=== PATIENT | male | born 1985 | race Caucasian/White ===

== ENCOUNTER → 2017-04-23 | Outpatient (REF) | payer OTHER | LOC: M LAB REF 08:00 | PROVIDERS: ATTEND Physician Assistant | DX: R21 Rash and other nonspecific skin eruption (principal) ==

== ENCOUNTER 2019-02-18 07:30 | Emergency (ER) | payer OTHER ==
[~2019-02-18] VITALS: Ht 177.8 cm; Wt 84.1 kg
[2019-02-18] MEDS ORDERED: FAMOTIDINE 20 MG TAB PO ONE (08:00)
[2019-02-18] MEDS ORDERED: PANTOPRAZOLE 40MG TAB (PROTONIX) PO ONE (08:00)
[2019-02-18] MEDS ORDERED: GI COCKTAIL 50ML BTL(HYOSCYAMINE/MAALOX/LIDOCAINE VISCOUS)(1:3:1) PO ONE (08:00)
[2019-02-18] MEDS ORDERED: KETOROLAC 30 MG/ML VIAL (J1885) IV ONE (08:30)
[2019-02-18 08:50] LABS: BASO % 0.4 % (0.0-1.0); EOS # 0.1 10^3/uL (0.0-0.50); LYMPH # 2.3 10^3/uL (1.5-4.5); LYMPH % 28.1 % (24.0-44.0); MEAN CORPUSCULAR HEMOGLOBIN 29.8 pg (27.0-33.0); MEAN CORPUSCULAR HGB CONC 34.9 g/dl (32.0-36.5); MEAN CORPUSCULAR VOLUME 85.5 fl (80.0-96.0); MONO # 0.7 10^3/uL (0.0-0.8); MONO % 8.5 % (0.0-5.0); NEUTROPHILS % 61.8 % (36.0-66.0); PLATELET COUNT, AUTOMATED 264 10^3/uL (150-450); RED BLOOD COUNT 5.03 10^6/uL (4.30-6.10); WHITE BLOOD COUNT 8.2 10^3/uL (4.0-10.0)
[2019-02-18 09:00] LABS: ALBUMIN 3.6 GM/DL (3.2-5.2); ALT/SGPT 39 U/L (12-78); AMYLASE 38 U/L (25-115); BILIRUBIN,DIRECT 0.1 MG/DL (0.0-0.2); BILIRUBIN,TOTAL 0.5 MG/DL (0.2-1.0); BLOOD UREA NITROGEN 12 MG/DL (7-18); CALCIUM LEVEL 8.9 MG/DL (8.5-10.1); CARBON DIOXIDE LEVEL 28 MEQ/L (21-32); CHLORIDE LEVEL 106 MEQ/L (98-107); CREATININE FOR GFR 0.76 MG/DL (0.70-1.30); GLOMERULAR FILTRATION RATE > 60.0 (>60); GLUCOSE, FASTING 99 MG/DL (70-100); LIPASE 59 U/L (73-393); POTASSIUM SERUM 4.5 MEQ/L (3.5-5.1); SODIUM LEVEL 140 MEQ/L (136-145); TOTAL PROTEIN 7.2 GM/DL (6.4-8.2)
[2019-02-18] MEDS ORDERED: ZOFR4TAB16 PO (09:13)
[2019-02-18] MEDS ORDERED: PROT1TAB2 PO (09:13)
[2019-02-18 09:30] VITALS: BP 145/95
[2019-02-19] MEDS ORDERED: PROT1TAB2 PO (23:59)
[2019-02-19] MEDS ORDERED: ZOFR4TAB16 PO (23:59)
== END 2019-02-18 09:32 | disposition home or self-care (01) ==
LOC: M ED 07:30
DX: K29.00 Acute gastritis without bleeding (principal); K21.0 Gastro-esophageal reflux disease with esophagitis; Z79.899 Other long term (current) drug therapy
CPT/HCPCS: 80048; 80076; 82150; 83690; 85025; 96374; 99284; J1885

== ENCOUNTER 2019-02-19 20:22 | Day surgery (SDC) | payer OTHER ==
[~2019-02-19] VITALS: Ht 177.8 cm; Wt 84.1 kg
[~2019-02-19 20:22] MED LIST: PROT1TAB2 PO; ZOFR4TAB16 PO
[2019-02-19 20:57] LABS: BASO % 0.2 % (0.0-1.0); EOS # 0.1 10^3/uL (0.0-0.50); EOS % 0.7 % (0.0-3.0); HEMOGLOBIN 15.4 g/dl (13.5-17.5); LYMPH # 3.1 10^3/uL (1.5-4.5); MEAN CORPUSCULAR HEMOGLOBIN 30.2 pg (27.0-33.0); MEAN CORPUSCULAR VOLUME 86.3 fl (80.0-96.0); MONO # 1.6 10^3/uL (0.0-0.8); MONO % 10.5 % (0.0-5.0); NEUTROPHILS # 10.5 10^3/uL (1.8-7.7); NEUTROPHILS % 68.1 % (36.0-66.0); PLATELET COUNT, AUTOMATED 296 10^3/uL (150-450); WHITE BLOOD COUNT 15.4 10^3/uL (4.0-10.0)
[2019-02-19 21:25] LABS: ALBUMIN 3.6 GM/DL (3.2-5.2); ALT/SGPT 35 U/L (12-78); BILIRUBIN,DIRECT 0.1 MG/DL (0.0-0.2); BILIRUBIN,TOTAL 0.7 MG/DL (0.2-1.0); BLOOD UREA NITROGEN 11 MG/DL (7-18); CALCIUM LEVEL 9.1 MG/DL (8.5-10.1); CARBON DIOXIDE LEVEL 30 MEQ/L (21-32); CHLORIDE LEVEL 102 MEQ/L (98-107); CREATININE FOR GFR 0.93 MG/DL (0.70-1.30); GLOMERULAR FILTRATION RATE > 60.0 (>60); GLUCOSE, FASTING 118 MG/DL (70-100); LIPASE 115 U/L (73-393); POTASSIUM SERUM 4.1 MEQ/L (3.5-5.1); SODIUM LEVEL 138 MEQ/L (136-145); TOTAL PROTEIN 7.3 GM/DL (6.4-8.2)
[2019-02-19] MEDS ORDERED: MORPHINE 2 MG/ML 1ML SYRINGE (J2270) IV ONE (21:30)
[2019-02-19] MEDS ORDERED: ONDANSETRON 4MG/2ML VIAL (J2405) IV ONE (21:30)
[2019-02-19] MEDS ORDERED: ISOVUE-370 76% 100ML VIAL (Q9967) As Ordered ONE (21:52)
[2019-02-19 22:07] LABS: AMORPHOUS SEDIMENT SMALL (NEGATIVE); APPEARANCE, URINE CLEAR (CLEAR); BACTERIA, URINE AUTO NEGATIVE (NEGATIVE); BILIRUBIN, URINE AUTO NEGATIVE (NEGATIVE); BLOOD, URINE BLOOD NEGATIVE (NEGATIVE); COLOR, URINE YELLOW (YELLOW); GLUCOSE, URINE (UA) AUTO NEGATIVE (NEGATIVE); KETONE, URINE AUTO NEGATIVE (NEGATIVE); LEUKOCYTE ESTERASE, URINE AUTO NEGATIVE (NEGATIVE); MUCUS, URINE SMALL (NEGATIVE); NITRITE, URINE AUTO NEGATIVE (NEGATIVE); PROTEIN, URINE AUTO NEGATIVE (NEGATIVE); RBC, URINE AUTO 2 /HPF (0-3); SPECIFIC GRAVITY URINE AUTO 1.016 (1.002-1.035); SQUAMOUS EPITHELIAL CELL UR AU 0 /HPF (0-6); UROBILINOGEN, URINE AUTO 0.2 mg/dL (0.0-2.0); WBC, URINE AUTO 1 /HPF (0-3)
--- NOTE | 2019-02-19 23:11 | REPVR ---
EXAM: CT Abdomen and Pelvis With Contrast EXAM DATE/TIME: 02/19/2019 10:05 PM CLINICAL HISTORY: 33 years old, male; Abdominal pain; Localized; Right lower quadrant (rlq); Additional info: Rlq abd pain, eval for appy TECHNIQUE: Imaging protocol: Axial computed tomography images of the abdomen and pelvis with intravenous contrast. Coronal and sagittal reformatted images were created and reviewed. Radiation optimization: All CT scans at this facility use at least one of these dose optimization techniques: automated exposure control; mA and/or kV adjustment per patient size (includes targeted exams where dose is matched to clinical indication); or iterative reconstruction. Contrast material: ISOVUE 370; Contrast volume: 100 ml; Contrast route: IV; COMPARISON: No relevant prior studies available. FINDINGS: ABDOMEN: Liver: Subtle 3.3 x 2.3 cm hypervascular lesion in the hepatic dome on the right, possibly a flash filling hemangioma. 6 mm low density lesion in the left hepatic lobe, too small to characterize. Gallbladder and bile ducts: No radiodense gallstones. No biliary ductal dilatation. Pancreas: Unremarkable. Spleen: Unremarkable. Adrenals: Unremarkable. Kidneys and ureters: No mass. No radiodense calculi. No hydronephrosis. Stomach and bowel: See Appendix Finding. Appendix: Dilated, thickwalled, hyperemic appendix with moderate periappendiceal inflammatory change and fluid. Mucosal discontinuity, consistent with early perforation. PELVIS: Bladder: Unremarkable. Reproductive: Unremarkable. ABDOMEN and PELVIS: Intraperitoneal space: Trace free pelvic fluid, likely reactive. No organized fluid collection. No free air. Bones/joints: No acute osseous abnormality. Soft tissues: Unremarkable. Vasculature: Unremarkable. No aneurysm. Lymph nodes: Small mesenteric lymph nodes, likely reactive. No pathologically enlarged lymph nodes. IMPRESSION: 1. Perforated appendicitis, as described above. No abscess, obstruction or free air. 2. Additional findings, as above. Electronically signed by: Lenard Fu On 02/19/2019 23:11:06 PM
[2019-02-19] MEDS ORDERED: PIPERACILLIN/TAZOBACTAM SOD 3.375 GM in D5W MINI-BAG PLUS 50 ML IV ONE (23:30)
[2019-02-19] MEDS ORDERED: NS 1,000 ML IV SCH (23:30)
[2019-02-19] MEDS ORDERED: PROT1TAB2 PO (23:59)
[2019-02-19] MEDS ORDERED: ZOFR4TAB16 PO (23:59)
[2019-02-20] VITALS (10 sets, daily range): BP systolic 97–125; BP diastolic 56–76
[2019-02-20] MEDS ORDERED: TUMS750C5 PO (00:05)
[2019-02-20] MEDS ORDERED: ROCURONIUM BROMIDE 50 MG/5 ML VIAL As Ordered ONE (00:42)
[2019-02-20] MEDS ORDERED: fentaNYL 250 MCG/5 ML INJECTION (J3010) As Ordered ONE (00:42)
[2019-02-20] MEDS ORDERED: LIDOCAINE 2% INJ 100 MG/5 ML SDV (FOR ANES.) As Ordered ONE (00:42)
[2019-02-20] MEDS ORDERED: PROPOFOL 200 MG/20 ML VIAL As Ordered ONE (00:42)
[2019-02-20] MEDS ORDERED: MIDAZOLAM INJ 2 MG/2 ML VIAL (J2250) As Ordered ONE (00:43)
[2019-02-20] MEDS ORDERED: BUPIVACAINE HCL 0.25% 30 ML VIAL As Ordered ONE (01:14)
[2019-02-20] MEDS ORDERED: LIDOCAINE 1% SDV INJ 30 ML VIAL As Ordered ONE (01:14)
--- NOTE | 2019-02-20 01:20 | HPEPDOC ---
General Surgery H&P Date of Admission February 19, 2019 Attending Physician: JAROD HARMON MD History and Physical CHIEF COMPLAINT: abdominal pain HISTORY OF PRESENT ILLNESS: Patient returns to the emergency room tonight with reports of worsening abdominal pain. He was seen in the emergency room yesterday with complaints of epigastric discomfort that started about . He reports the discomfort as vague, achy sometimes sharp. This is accompanied by constipation. He was diagnosed possibility of gastritis was discharged home on Zofran and pantoprazole. He took the medications when he got home and his pain did not improve. Likewise his pain became sharp and localized to the right lower quadrant area starting this morning. Patient also reports being febrile at home. ALLERGIES: Please see below. HOME MEDICATIONS: Please see below. PAST MEDICAL HISTORY: 1 denies any chronic medical problems PAST SURGICAL HISTORY: 1. hernia repair, bilateral inguinal hernia 2. left elbow surgery. PERSONAL/SOCIAL HISTORY: [Denies smoking, alcohol use, or recreational drug use]. REVIEW OF SYSTEMS: GENERAL: Patient reports fever early in the week which she believes is from a viral prodrome that he got from his daughter. HEENT: [Denies blurred vision and double vision. Denies ear symptoms. Denies hoarseness]. NECK: [Denies any neck pain]. CARDIOVASCULAR: [Denies chest pain and palpitations]. MUSCULOSKELETAL: Reports left shoulder pain from an injury he got in January. SKIN: [Denies rash]. NEUROLOGIC: [Denies headache, stroke and transient ischemic attack]. PSYCHIATRIC: [Denies anxiety and depression]. ENDOCRINE: [Denies thyroid disease]. HEMATOLOGY/ONCOLOGY: [Denies any bleeding or clotting disorder]. HEART: [Denies any chest pains, palpitations, paroxysmal dyspnea, orthopnea]. PULMONARY: [Denies chronic cough, dyspnea and wheezing]. GASTROINTESTINAL: [Denies rectal bleeding, family history of colon cancer, constipation, diarrhea, dysphagia, heartburn and jaundice]. GENITOURINARY: [Denies dysuria, frequency, hematuria and nocturia]. ENDOCRINE: [Denies polydipsia, polyphagia, polyuria, heat or cold intolerance]. INFECTIOUS: No antibiotics, suspects he had some viral prodrome early in the week with fever. NUTRITION: Reports fair appetite. PHYSICAL EXAMINATION: VITAL SIGNS: Please see below. GENERAL APPEARANCE: Mildly uncomfortable laying flat on bed. [Awake, alert, oriented]. HEENT: [Normocephalic, atraumatic. [place] palpebral conjunctivae. Anicteric sclerae. Lips moist]. CHEST: [No chest wall abnormalities. Normal respiratory motion/effort]. NECK: [Supple. No thyromegaly. No lymphadenopathies]. LUNGS: [Lung sounds are clear to auscultation bilaterally. No wheezing appreciated]. HEART: [No chest wall abnormalities. Heart rate and rhythm are regular with no murmurs]. ABDOMEN: Abdomen is flat, soft. No umbilical or groin herniations. Bilateral groin hernia incisions noted. He is exquisitely tender over the right lower quadrant area with guarding as well as rebound which decreases in amount as it crosses past midline. He is nontender on the left side. SKIN: [Warm, moist]. EXTREMITIES: [Extremities have no deformities. No edema identified]. NEUROLOGICAL: Awake, alert, oriented. ANCILLARIES: . LABORATORY DATA: Please see below. MICROBIOLOGY: Please see below. IMAGING: CT scan abdomen and pelvis Appendix: Dilated, thickwalled, hyperemic appendix with moderate periappendiceal inflammatory change and fluid. Mucosal discontinuity, consistent with early perforation. IMPRESSION AND PLAN: Acute Appendicitis, possibly perforated Patient has been having symptoms since with a good possibility that the appendix has perforated both on history, examination as well as on the CT. I think he would still benefit from a adequate source control with an appendectomy though he may need to stay in the hospital for a few days until he is afebrile and any signs of systemic inflammatory response is resolved with continued antibiotics. I discussed with the patient the details of the proposed procedure, the benefits of performing the procedure, the most common risks on doing the procedure. This may include risks of bleeding, subsequent infection and abscess formation, wound infection, injury to nearby bowels, vascular structures and hernia formation. I have given him a chance to ask questions, voice out concerns. Patient has agreed to proceed Patient's been given Zosyn 3.3 cm grams IV emergency room. I will continue this preoperatively specially if he is found to have perforation Vital Signs Vital Signs Date Time Temp Pulse Resp B/P (MAP) Pulse Ox O2 Delivery O2 Flow Rate FiO2 02/19/19 21:04 02/19/19 20:22 98.0 116 16 96 Room Air Laboratory Data Labs 24H Laboratory Tests 2 02/19/19 20:39: Immature Granulocyte % (Auto) 0.5, White Blood Count 15.4H, Red Blood Count 5.10, Hemoglobin 15.4, Hematocrit 44.0, Mean Corpuscular Volume 86.3, Mean Corpuscular Hemoglobin 30.2, Mean Corpuscular Hemoglobin Concent 35.0, Red Cell Distribution Width 11.3L, Platelet Count 296, Neutrophils (%) (Auto) 68.1H, Lymphocytes (%) (Auto) 20.0L, Monocytes (%) (Auto) 10.5H, Eosinophils (%) (Auto) 0.7, Basophils (%) (Auto) 0.2, Neutrophils # (Auto) 10.5H, Lymphocytes # (Auto) 3.1, Monocytes # (Auto) 1.6H, Eosinophils # (Auto) 0.1, Basophils # (Auto) 0.0, Nucleated Red Blood Cells % (auto) 0.0, Anion Gap 6L, Glomerular Filtration Rate > 60.0, Calcium Level 9.1, Aspartate Amino Transf (AST/SGOT) 19, Alanine Aminotransferase (ALT/SGPT) 35, Alkaline Phosphatase 55, Total Bilirubin 0.7, Direct Bilirubin 0.1, Total Protein 7.3, Albumin 3.6, Albumin/Globulin Ratio 0.97L, Lipase 115 02/19/19 21:48: Urine Appearance CLEAR, Urine Color YELLOW, Urine pH 7.0, Urine Specific [place] 1.016, Urine Protein NEGATIVE, Urine Glucose (UA) NEGATIVE, Urine Ketones NEGATIVE, Urine Urobilinogen 0.2, Urine Bilirubin NEGATIVE, Urine Leukocyte Esterase NEGATIVE, Urine Blood NEGATIVE, Urine Nitrite NEGATIVE, Urine WBC (Auto) 1, Urine RBC (Auto) 2, Urine Hyaline Casts (Auto) 0, Urine Bacteria (Auto) NEGATIVE, Urine Squamous Epithelial Cells 0, Urine Amorphous Sediment SMALLH, Urine Mucus (Auto) SMALL, Urine Sperm (Auto) CBC/BMP Laboratory Tests 02/19/19 20:39 Red Blood Count 5.10, Mean Corpuscular Volume 86.3, Mean Corpuscular Hemoglobin 30.2, Mean Corpuscular Hemoglobin Concent 35.0, Red Cell Distribution Width 11.3 L, Neutrophils (%) (Auto) 68.1 H, Lymphocytes (%) (Auto) 20.0 L, Monocytes (%) (Auto) 10.5 H, Eosinophils (%) (Auto) 0.7, Basophils (%) (Auto) 0.2, Neutrophils # (Auto) 10.5 H, Lymphocytes # (Auto) 3.1, Monocytes # (Auto) 1.6 H, Eosinophils # (Auto) 0.1, Basophils # (Auto) 0.0 Home Medications Scheduled Pantoprazole Sodium (Protonix) 40 Mg Tablet.dr, 40 MG PO DAILY, (Reported) Scheduled PRN Calcium Carbonate (Tums) 300 Mg Tab.chew, 750 MG PO Q4H PRN for HEARTBURN/INDIGESTION, (Reported) Ondansetron HCl (Zofran) 4 Mg Tablet, 4 MG PO Q6H PRN for NAUSEA, (Reported) Allergies Coded Allergies: No Known Drug Allergies (Verified Allergy, Unknown, 02/18/19) A-FIB/CHADSVASC A-FIB History Current/History of A-Fib/PAF?: No Current Oral Anticoagulant The: No JAROD HARMON MD February 19, 2019 23:59
[2019-02-20] MEDS ORDERED: dexameTHASONE 4 MG/ML 1ML VIAL (J1100) As Ordered ONE (01:48)
[2019-02-20] MEDS ORDERED: ONDANSETRON 4MG/2ML VIAL (J2405) As Ordered ONE (02:04)
[2019-02-20] MEDS ORDERED: KETOROLAC 60 MG/2 ML VIAL (J1885) As Ordered ONE (02:04)
[2019-02-20] MEDS ORDERED: SUGAMMADEX SODIUM 500 MG/5 ML VIAL (BRIDION) As Ordered ONE (02:05)
[2019-02-20] MEDS ORDERED: LR 1,000 ML IV SCH ×2 (02:21→02:45)
--- NOTE | 2019-02-20 02:28 | ROOPDOC ---
[facility] Report Of Operation Report of Operation DATE OF PROCEDURE: 02/20/19 PREPROCEDURE DIAGNOSES: Acute appendicitis POSTPROCEDURE DIAGNOSES: Acute perforated Appendicitis. PROCEDURE: Laparoscopic Appendectomy. SURGEON: James Mcghee MD VAMP WETTER: ANESTHESIA: General anesthesia. ESTIMATED BLOOD LOSS: Approximately 10 mL. COMPLICATIONS: None. REMARKS: Healthy 33-year-old male with at least 4 days history of ongoing abdominal discomfort, right lower quadrant tenderness and guarding in CT evidence for appendicitis possibility of perforation. PROCEDURE NOTE: Inflamed and thickened appendix throughout its course. The tip is perforated with a very tiny focus of abscess in between the tip and the right lateral abdominal sidewall otherwise no free fluid collections.. DESCRIPTION OF PROCEDURE: .Patient has been given a dose of Zosyn perioperatively.Patient was brought to the operating room, placed supine on the table. Sequential compression device placed for DVT prophylaxis. General endotracheal anesthesia started. The abdomen prepped and draped in usual sterile fashion. After a surgical timeout, we began our surgery Entry into the abdomen done through an incision above the umbilicus. Veress needle inserted on a controlled fashion. Intra-abdominal placement confirmed with saline drop technique. CO2 insufflation started to a pressure of 15 mmHg. Using the same incision a 12 mm port was placed under direct vision of laparoscope. Insertion site was inspected for injury and none was found. He was placed on a Trendelenburg position the right side tilted to about 30 to allow for better visualization of the appendix. 2 working ports were placed at the suprapubic area and left lower quadrant area under direct vision. An 8 mm port was exchanged for the 5 mm umbilical port. Operative findings: The appendix is noted inflamed and thickened throughout its course. Tip of it is adhered to the right lateral abdominal sidewall his small focus of surrounding purulent material around the site of perforation. No free perforation or well localized abscess collection. The base of the appendix is mildly inflamed but otherwise healthy. There is a cyst on the tip of the right lobe liver. The appendix was located. The Surrounding bowels retracted away from the appendix. This was grasped to pull the base of the appendix into view. The tip of the appendix was dissected free from its attachment to the lateral abdominal sidewall. There is a small amount of purulent material surrounding the tip which is focally perforated. The mesoappendix was divided using Harmonic scalpel down to the base. Two PDS Endoloops were placed to ligate the appendix at its base then divided with a Harmonic Scalpel the stump cauterized. Stump appears healthy. Appendix was then delivered into an Endo Catch bag. After re- insufflation the surgical site was inspected for hemostasis, the right gutter wa s irrigated and suctioned off until clear return. Surrounding areas of the abdomen and inspected for fluid collections or signs of injury. A 10 flat TONYA drain was left in place close to the abdomen initial stump for monitoring and for drainage of fluid irrigation. The abdomen was deflated. All ports removed. The umbilical fascial defect repaired with 0 Vicryl in a mattress fashion. All skin incisions closed with 4-0 Monocryl in a subcuticular fashion. Steri-Strips and gauze dressing used for wound coverage. Patient was promptly awake and extubated and brought to recovery room stable. All counts of sponges and instruments verified to be correct. JAMES MCGHEE MD February 20, 2019 01:44
[2019-02-20] MEDS ORDERED: MORPHINE 4 MG/ML 1ML VIAL/SYRINGE (J2270) IV PRN (02:30)
[2019-02-20] MEDS ORDERED: NORCO, ANEXSIA 5/325MG TABLET (HYDROcodone/ACETAMINOPHEN) PO PRN ×2 (02:30→02:45)
[2019-02-20] MEDS ORDERED: ONDANSETRON 4MG/2ML VIAL (J2405) IV PRN (02:30)
[2019-02-20] MEDS ORDERED: fentaNYL 100 MCG/2 ML INJECTION (J3010) IV PRN (02:45)
[2019-02-20] MEDS ORDERED: PROMETHAZINE INJ 25 MG/ML VIAL (J2550) IV PRN (02:45)
[2019-02-20] MEDS: NORCO, ANEXSIA 5/325MG TABLET (HYDROcodone/ACETAMINOPHEN) PO PRN ×3 (04:26→18:00)
[2019-02-20 06:51] LABS: BASO % 0.2 % (0.0-1.0); HEMATOCRIT 41.1 % (42.0-52.0); HEMOGLOBIN 14.3 g/dl (13.5-17.5); LYMPH # 1.2 10^3/uL (1.5-4.5); LYMPH % 6.6 % (24.0-44.0); MEAN CORPUSCULAR HEMOGLOBIN 30.2 pg (27.0-33.0); MEAN CORPUSCULAR HGB CONC 34.8 g/dl (32.0-36.5); MEAN CORPUSCULAR VOLUME 86.7 fl (80.0-96.0); MONO # 1.8 10^3/uL (0.0-0.8); MONO % 9.9 % (0.0-5.0); NEUTROPHILS # 15.2 10^3/uL (1.8-7.7); NEUTROPHILS % 82.8 % (36.0-66.0); PLATELET COUNT, AUTOMATED 272 10^3/uL (150-450); RED BLOOD COUNT 4.74 10^6/uL (4.30-6.10); WHITE BLOOD COUNT 18.3 10^3/uL (4.0-10.0)
[2019-02-20 07:12] LABS: BLOOD UREA NITROGEN 13 MG/DL (7-18); CALCIUM LEVEL 8.9 MG/DL (8.5-10.1); CARBON DIOXIDE LEVEL 27 MEQ/L (21-32); CHLORIDE LEVEL 104 MEQ/L (98-107); GLOMERULAR FILTRATION RATE > 60.0 (>60); GLUCOSE, FASTING 128 MG/DL (70-100); POTASSIUM SERUM 3.9 MEQ/L (3.5-5.1); SODIUM LEVEL 138 MEQ/L (136-145)
[2019-02-20] MEDS: SENOKOT S TAB PO SCH ×2 (08:39→20:29)
[2019-02-20] MEDS: PIPERACILLIN/TAZOBACTAM SOD 3.375 GM in D5W MINI-BAG PLUS 50 ML IV SCH ×2 (08:39→16:33)
[2019-02-20] MEDS: KETOROLAC 30 MG/ML VIAL (J1885) IV PRN ×2 (14:13→20:33)
[2019-02-21] VITALS: BP 128/80
[2019-02-21] MEDS: PIPERACILLIN/TAZOBACTAM SOD 3.375 GM in D5W MINI-BAG PLUS 50 ML IV SCH ×2 (00:15→08:28)
[2019-02-21] MEDS: NORCO, ANEXSIA 5/325MG TABLET (HYDROcodone/ACETAMINOPHEN) PO PRN ×2 (00:16→07:17)
[2019-02-21 08:15] VITALS: BP 141/80
[2019-02-21 08:20] LABS: BASO % 0.2 % (0.0-1.0); EOS # 0.2 10^3/uL (0.0-0.50); EOS % 1.4 % (0.0-3.0); HEMATOCRIT 40.9 % (42.0-52.0); HEMOGLOBIN 13.9 g/dl (13.5-17.5); LYMPH # 2.7 10^3/uL (1.5-4.5); LYMPH % 25.3 % (24.0-44.0); MEAN CORPUSCULAR HEMOGLOBIN 29.3 pg (27.0-33.0); MEAN CORPUSCULAR VOLUME 86.3 fl (80.0-96.0); MONO # 1.1 10^3/uL (0.0-0.8); MONO % 10.5 % (0.0-5.0); NEUTROPHILS # 6.6 10^3/uL (1.8-7.7); NEUTROPHILS % 61.9 % (36.0-66.0); PLATELET COUNT, AUTOMATED 260 10^3/uL (150-450); RED BLOOD COUNT 4.74 10^6/uL (4.30-6.10); WHITE BLOOD COUNT 10.6 10^3/uL (4.0-10.0)
[2019-02-21] MEDS: SENOKOT S TAB PO SCH (08:28)
[2019-02-21 08:43] LABS: BLOOD UREA NITROGEN 15 MG/DL (7-18); CALCIUM LEVEL 8.4 MG/DL (8.5-10.1); CARBON DIOXIDE LEVEL 26 MEQ/L (21-32); CHLORIDE LEVEL 106 MEQ/L (98-107); CREATININE FOR GFR 0.64 MG/DL (0.70-1.30); GLOMERULAR FILTRATION RATE > 60.0 (>60); GLUCOSE, FASTING 87 MG/DL (70-100); POTASSIUM SERUM 4.2 MEQ/L (3.5-5.1); SODIUM LEVEL 139 MEQ/L (136-145)
[2019-02-21 12:00] VITALS: BP 126/61
[2019-02-21] MEDS: KETOROLAC 30 MG/ML VIAL (J1885) IV PRN (12:02)
[2019-02-21] MEDS ORDERED: FLAG500T PO (12:15)
[2019-02-21] MEDS ORDERED: AMOX875T2 PO (12:15)
[2019-02-21] MEDS ORDERED: HYDR-4571 PO (12:15)
--- NOTE | 2019-02-21 14:01 | IPNPDOC ---
Subjective General Date/Time Seen The patient was seen on 02/21/19 at 13:56. Subject Chief Complaint/History The patient is a 33-year-old male admitted with a reason for visit of Appendicitis. Patient reports feeling mildly better this morning. He denies any nausea. He is tolerating regular food and has a good appetite. No more febrile episodes since yesterday. Current Medications Current Medications Current Medications Acetaminophen/ Hydrocodone Bitart ([place], Anexsia 5/325) 1 tab ASDIRECTED PRN PO MILD/MODERATE PAIN (PS 1-7); Start 02/20/19 at 02:45; Stop 02/20/19 at 03:44; Status DC Acetaminophen/ Hydrocodone Bitart ([place], Anexsia 5/325) 1 tab Q4HP PRN PO MODERATE PAIN (PS 5-7); Start 02/20/19 at 02:30 Acetaminophen/ Hydrocodone Bitart ([place], Anexsia 5/325) 2 tab Q6HP PRN PO SEVERE PAIN (PS 8-10) Last administered on 02/21/19at 07:17; Start 02/20/19 at 02:30 Fentanyl Citrate (Sublimaze) 25 mcg Q5MP PRN IV MODERATE PAIN (PS 4-7); Start 02/20/19 at 02:45; Stop 02/20/19 at 03:44; Status DC Home Med (Med Rec Complete!) ASDIRECTED XX ; Start 02/20/19 at 00:00; Stop 02/20/19 at 00:05; Status DC Ketorolac Tromethamine (ToRADol) 30 mg Q6HP PRN IV MILD/MODERATE PAIN (PS 1-7) Last administered on 02/21/19at 12:02; Start 02/20/19 at 02:30; Stop 02/25/19 at 02:29 Lactated Ringer's 1,000 ml @ 100 mls/hr Q10H IV ; Start 02/20/19 at 02:21; Sta tus Cancel Lactated Ringer's 1,000 ml @ 100 mls/hr Q10H IV ; Start 02/20/19 at 02:45; Stop 02/20/19 at 03:44; Status DC Morphine Sulfate (Morphine Sulfate Inj) 4 mg Q2HP PRN IV SEVERE PAIN (PS 8-10); Start 02/20/19 at 02:30 Ondansetron HCl (ZOFRAN INJection) 4 mg Q6HP PRN IV NAUSEA OR VOMITING; Start 02/20/19 at 02:30 Piperacillin Sod/ Tazobactam Sod 3.375 gm/Dextrose 50 ml @ 50 mls/hr Q8H IV Last administered on 02/21/19at 08:28; Start 02/20/19 at 08:00 Promethazine HCl (PHENERGAN INJection) 12.5 mg Q5MP PRN IV NAUSEA OR VOMITING; Start 02/20/19 at 02:45; Stop 02/20/19 at 03:44; Status DC Senna/Docusate Sodium (Senokot S) 1 tab BID PO Last administered on 02/21/19at 08:28; Start 02/20/19 at 09:00 Sodium Chloride 1,000 ml @ 125 mls/hr Q8H IV Last administered on 02/19/19at 23:45; Start 02/19/19 at 23:30; Stop 02/20/19 at 02:27; Status DC Allergies Coded Allergies: No Known Drug Allergies (Verified Allergy, Unknown, 02/18/19) Objective Physical Examination Examination GENERAL APPEARANCE: Patient looks comfortable. SKIN: Warm and moist. HEENT: Normocephalic, atraumatic. [place] palpebral conjunctiva, anicteric sclerae. Lips and mucosa appear moist. NECK: Supple, no thyromegaly. No obvious jugular venous distention. LUNGS: Clear to auscultation bilaterally. No wheezing appreciated. HEART: No chest wall abnormalities. Regular rate and rhythm with no murmurs appreciated. ABDOMEN: Abdomen is relatively flat, soft, nondistended. Still mildly tender over the right lower quadrant area nontender and other parts of the abdomen, according. EXTREMITIES: Extremities have no deformities. No edema identified. Vital Signs Vital Signs Date Time Temp Pulse Resp B/P (MAP) Pulse Ox O2 Delivery O2 Flow Rate FiO2 02/21/19 12:00 99.1 77 17 126/61 (82) 97 02/19/19 20:22 Room Air I&Os I&O- Last 24 Hours up to 6 AM 02/21/19 06:00 Intake Total 2440 ml Output Total 1600 ml Balance 840 ml Laboratory Data Labs 24H Laboratory Tests 2 02/21/19 07:49: Immature Granulocyte % (Auto) 0.7, White Blood Count 10.6H, Red Blood Count 4.74, Hemoglobin 13.9, Hematocrit 40.9L, Mean Corpuscular Volume 86.3, Mean Corpuscular Hemoglobin 29.3, Mean Corpuscular Hemoglobin Concent 34.0, Red Cell Distribution Width 11.4L, Platelet Count 260, Neutrophils (%) (Auto) 61.9, Lymphocytes (%) (Auto) 25.3, Monocytes (%) (Auto) 10.5H, Eosinophils (%) (Auto) 1.4, Basophils (%) (Auto) 0.2, Neutrophils # (Auto) 6.6, Lymphocytes # (Auto) 2.7, Monocytes # (Auto) 1.1H, Eosinophils # (Auto) 0.2, Basophils # (Auto) 0.0, Nucleated Red Blood Cells % (auto) 0.0, Anion Gap 7L, Glomerular Filtration Rate > 60.0, Blood Urea Nitrogen 15, Creatinine 0.64L, Sodium Level 139, Potassium Level 4.2, Chloride Level 106, Carbon Dioxide Level 26, Calcium Level 8.4L, C- Reactive Protein, Quantitative 13.20H CBC/BMP Laboratory Tests 02/21/19 07:49 Red Blood Count 4.74, Mean Corpuscular Volume 86.3, Mean Corpuscular Hemoglobin 29.3, Mean Corpuscular Hemoglobin Concent 34.0, Red Cell Distribution Width 11.4 L, Neutrophils (%) (Auto) 61.9, Lymphocytes (%) (Auto) 25.3, Monocytes (%) (Auto) 10.5 H, Eosinophils (%) (Auto) 1.4, Basophils (%) (Auto) 0.2, Neutrophils # (Auto) 6.6, Lymphocytes # (Auto) 2.7, Monocytes # (Auto) 1.1 H, Eosinophils # (Auto) 0.2, Basophils # (Auto) 0.0, Calcium Level 8.4 L JAROD HARMON MD February 21, 2019 14:01
== END 2019-02-21 13:50 | disposition home or self-care (01) ==
LOC: M ED 20:22 → M SDC 20:24 → M PED 02-20 03:08 → M SDC 02-20 03:08 → M PED 02-21 13:50 → M SDC 02-21 13:50
PROVIDERS: ATTEND Surgery
DX: K35.80 Unspecified acute appendicitis (principal)
CPT/HCPCS: 36415; 44970; 74177; 80048; 80076; 81001; 83690; 85025; 86140; 88304; 96365; 96366; 96375; 99284; J1100; J1885; J2250; J2405; J2543; J3010; Q9967

== ENCOUNTER → 2019-03-31 | Outpatient (CLI) | payer OTHER ==
[~2019-03-31] MED LIST changes: +AMOX875T2 PO; +FLAG500T PO; +HYDR-4571 PO; +TUMS750C5 PO
--- NOTE | 2019-04-02 11:54 | REP ---
MRI LEFT SHOULDER: TECHNIQUE: Axial T2 fat sat, gradient echo, sagittal oblique T2 fat sat, coronal oblique T1, T2 fat sat. The supraspinatus tendon demonstrates ill-defined high signal on T2-weighted images compatible with moderate tendinopathy/tendonitis. Otherwise no rotator cuff tendon tear is seen. There are mild hypertrophic degenerative changes of the acromioclavicular joint with mild fluid in the joint. Acromion is type 2. Biceps tendon is within the bicipital groove with no tenosynovitis. There is no Hill-Sach's deformity. The deltoid muscle demonstrates no abnormal signal. Biceps labral complex is intact. There is a tear of the posterior labrum inferiorly with an associated 3 mm paralabral cyst. There is also a tear of the anterior labrum inferiorly. There is no bone marrow edema or occult fracture There is a normal amount of joint fluid. IMPRESSION: Moderate degree of supraspinatus tendinopathy/tendonitis. Mild to moderate hypertrophic degenerative changes acromioclavicular joint. Type 2 acromion. There is a tear of the anterior labrum inferiorly. There is also a tear of the posterior labrum inferiorly with an associated 3 mm paralabral cyst. Electronically Signed by Matthew Trinh MD 04/02/2019 04:24 P
== END ==
LOC: M RAD 10:04
PROVIDERS: ATTEND Family Medicine
DX: M25.512 Pain in left shoulder (principal)

== ENCOUNTER 2020-05-08 15:50 | Emergency (ER) | payer OTHER ==
[2020-06-05 13:04] LABS: APPEARANCE, URINE CLEAR (CLEAR); BACTERIA, URINE AUTO NEGATIVE (NEGATIVE); BILIRUBIN, URINE AUTO NEGATIVE (NEGATIVE); BLOOD, URINE BLOOD NEGATIVE (NEGATIVE); COLOR, URINE YELLOW (YELLOW); GLUCOSE, URINE (UA) AUTO NEGATIVE (NEGATIVE); KETONE, URINE AUTO NEGATIVE (NEGATIVE); LEUKOCYTE ESTERASE, URINE AUTO NEGATIVE (NEGATIVE); MUCUS, URINE SMALL (NEGATIVE); NITRITE, URINE AUTO NEGATIVE (NEGATIVE); PROTEIN, URINE AUTO NEGATIVE (NEGATIVE); RBC, URINE AUTO 1 /HPF (0-3); SPECIFIC GRAVITY URINE AUTO 1.018 (1.002-1.035); SQUAMOUS EPITHELIAL CELL UR AU 0 /HPF (0-6); UROBILINOGEN, URINE AUTO 0.2 mg/dL (0.0-2.0); WBC, URINE AUTO 0 /HPF (0-3)
[2020-06-21 14:10] LABS: CHLAMYDIA DNA AMPLIFICATION NEGATIVE (NEGATIVE); GC DNA AMPLIFICATION NEGATIVE (NEGATIVE)
== END 2020-05-08 16:05 | disposition home or self-care (01) ==
LOC: M ED 15:50
DX: S30.22XA Contusion of scrotum and testes, initial encounter (principal); N43.3 Hydrocele, unspecified; W50.1XXA Accidental kick by another person, initial encounter; Y92.9 Unspecified place or not applicable; E78.5 Hyperlipidemia, unspecified

== ENCOUNTER 2021-09-01 16:49 | Emergency (ER) | payer OTHER ==
[~2021-09-01] VITALS: Ht 177.8 cm; Wt 82.8 kg
[2021-09-01 16:49] VITALS: BP 143/73
[2021-09-01 18:09] LABS: RSV AMPLIFICATION NEGATIVE (NEGATIVE)
== END 2021-09-01 21:03 | disposition left against medical advice (07) ==
LOC: M ED 16:49
DX: Z53.21 Procedure and treatment not carried out due to patient leaving prior to being seen by health care provider (principal)

== ENCOUNTER 2022-06-10 11:07 | Emergency (ER) | payer OTHER ==
[~2022-06-10] VITALS: Ht 177.8 cm; Wt 85.9 kg
[2022-06-10] MEDS ORDERED: CEPH500C (11:20)
[2022-06-10] MEDS ORDERED: OCUS0.02 (11:20)
[2022-06-10] MEDS ORDERED: GENT0.3S29 (11:20)
[2022-06-10] MEDS ORDERED: BACT800T5 PO (13:50)
[2022-06-10 15:00] VITALS: BP 140/83
== END 2022-06-10 15:00 | disposition home or self-care (01) ==
LOC: M ED 11:07
DX: H00.014 Hordeolum externum left upper eyelid (principal); H00.011 Hordeolum externum right upper eyelid